=== PATIENT | female | born 1980 | race Caucasian/White ===

== ENCOUNTER 2018-02-07 07:42 | Day surgery (SDC) | payer OTHER ==
[2018-02-06 08:38] VITALS: BMI 38.2
[2018-02-07] MEDS ORDERED: CEFAZOLIN/Water 2 GM/20 ML SYRINGE ONE (08:54)
[2018-02-07] MEDS ORDERED: Lidocaine 1% (PF) 30 ML VIAL ONE (09:21)
[2018-02-07] MEDS ORDERED: Fentanyl 100 MCG/2 ML VIAL ONE ×3 (09:36→11:51)
[2018-02-07] MEDS ORDERED: Promethazine HCl 25 MG/ML VIAL ONE (12:03)
--- NOTE | 2018-02-07 12:57 | OP ---
DATE OF PROCEDURE: 02/07/2018 PREOPERATIVE DIAGNOSES: Right arm cubital tunnel syndrome. POSTOPERATIVE DIAGNOSIS: Right arm cubital tunnel syndrome. PROCEDURE PERFORMED: 1. Right-sided ulnar nerve release. 2. Placement of long arm splint, right upper extremity. SURGEON: Noe Sifuentes M.D. CONTROLLER REPAIRER AND TESTER: None. BLOOD LOSS: Minimal. COMPLICATIONS: None. ANESTHESIA: The patient had a general anesthetic. We did infiltrate the wound with local at the end of the procedure. INDICATIONS: A 37-year-old female who has significant pain, numbness and tingling from ulnar nerve c ompression and this was confirmed with an EMG/NCV. At this time, she opted to have a nerve release. DESCRIPTION OF PROCEDURE: After all appropriate consent forms were explained and signed, she was donna en to the operating room and at this time and was given general anesthetic. Once the general anesthe tic was appropriate, the tourniquet was placed on the right arm and the right upper extremity was pre pped and draped in the standard surgical fashion. The incision line was drawn out. The limb was exs anguinated and the tourniquet was taken up to 250 mmHg. Using loupe magnification, a 10 blade was us ed to incise down through skin only. Bipolar cautery was used to coagulate any brisk venous bleeding . From here on scissor dissection was used to free up the nerve proximally up the brachium and down to the first motor branch distally. Once this was freed up and no more adhesions were noted, the alber[place] [facility] [employer]-Ed[employer] sponge was placed into the wound and the patient's tourniquet was let down. The bipolar w as used to achieve hemostasis and once hemostasis was achieved, we thoroughly irrigated and dried the wound. We then took a Vicryl suture and closed the 2 sides of the fascia, closing the cubital tunne l so the nerve could not fall back into the cubital tunnel. Once this was done, 2-0 Vicryl and then 3-0 Prolene were used to close skin. As we were done, closing the skin we infiltrated the entire wou nd with local medication. At this time, a bulky sterile dressing was applied as well as a long arm p osterior splint. A sling was applied. The patient was taken to the recovery room after she was awak ened. All counts were correct at the end of the case and she did receive preoperative IV antibiotics .
[2018-02-07] MEDS ORDERED: PROPOFOL 200 MG/20 ML VIAL ONE (14:25)
[2018-02-07] MEDS ORDERED: Lidocaine 1% PF 5 ML VIAL ONE (14:25)
[2018-02-07] MEDS ORDERED: Ondansetron HCl/PF 4 MG/2 ML Vial ONE (14:25)
== END 2018-02-07 13:40 | disposition home or self-care (01) ==
LOC: SDC 07:42
PROVIDERS: ATTEND Orthopaedic Surgery
PROC: 01N40ZZ Release Ulnar Nerve, Open Approach (ICD-10-PCS; principal; 2018-02-07)
DX: G56.21 Lesion of ulnar nerve, right upper limb (principal); E03.9 Hypothyroidism, unspecified; Z79.899 Other long term (current) drug therapy; Z88.5 Allergy status to narcotic agent
CPT/HCPCS: 96374; J2001; J2405; J2550; J2704; J3010

== ENCOUNTER 2022-03-31 13:28 | Outpatient (CLI) | payer BC | END 2022-03-31 13:29 | disposition home or self-care (01) | LOC: SCSMRI 13:28 | PROVIDERS: ATTEND Orthopaedic Surgery | DX: M24.9 Joint derangement, unspecified (principal); S53.432A Radial collateral ligament sprain of left elbow, initial encounter; M25.422 Effusion, left elbow; S53.492A Other sprain of left elbow, initial encounter ==

== ENCOUNTER 2022-05-04 06:00 | Day surgery (SDC) | payer BC ==
[2022-05-02 10:07] VITALS: BMI 38.2
[2022-05-04] MEDS ORDERED: fentaNYL Citrate/PF 100 MCG/2 ML SYRINGE ONE ×2 (06:37→08:32)
[2022-05-04] MEDS ORDERED: Bupivacaine HCl 0.5%/Epinephrine 1:200,000/PF 30 ml Vial ONE ×2 (06:44→07:25)
[2022-05-04] MEDS ORDERED: Sodium Chloride 0.9% 100 ML ONE (07:10)
[2022-05-04] MEDS ORDERED: CEFAZOLIN 2 GM VIAL ONE (07:10)
[2022-05-04] MEDS ORDERED: Midazolam HCl 2 mg/2 ml Vial ONE (07:12)
[2022-05-04] MEDS ORDERED: Lidocaine 1% MPF 2 ML VIAL ONE (07:25)
[2022-05-04] MEDS ORDERED: Glycopyrrolate 0.2 MG/ML 5 ML SYRINGE ONE (07:25)
[2022-05-04] MEDS ORDERED: NEOSTIGMINE 3 MG/3 ML SYR 3 MG/3 ML SYRINGE ONE (07:25)
[2022-05-04] MEDS ORDERED: Rocuronium Bromide 10 MG/ML (10ML VIAL) ONE (07:25)
[2022-05-04] MEDS ORDERED: PROPOFOL 200 MG/20 ML VIAL ONE (07:25)
[2022-05-04] MEDS ORDERED: Ondansetron PF 4 MG/2 ML Vial ONE ×2 (07:25→10:10)
[2022-05-04] MEDS ORDERED: Esmolol 100 MG/10 ML VIAL ONE (07:25)
[2022-05-04] MEDS ORDERED: Ketorolac Tromethamine 30 MG/ML VIAL ONE (07:25)
[2022-05-04] MEDS ORDERED: Fentanyl 100 MCG/2 ML VIAL ONE ×2 (10:15→10:41)
[2022-05-04] MEDS ORDERED: Bupivacaine PF 0.5% 30 ML VIAL ONE (10:38)
[2022-05-04] MEDS ORDERED: Scopolamine 1.5 mg/72 hour Patch ONE (10:57)
[2022-05-04] MEDS ORDERED: Promethazine HCl 25 MG/ML VIAL ONE (11:53)
== END 2022-05-04 14:25 | disposition home or self-care (01) ==
LOC: SDC 06:00
PROVIDERS: ATTEND Orthopaedic Surgery
PROC: 01N40ZZ Release Ulnar Nerve, Open Approach (ICD-10-PCS; principal; 2022-05-04)
PROC: 0RBM4ZZ Excision of Left Elbow Joint, Percutaneous Endoscopic Approach (ICD-10-PCS; principal; 2022-05-04)
DX: G56.22 Lesion of ulnar nerve, left upper limb (principal); M24.022 Loose body in left elbow; M19.022 Primary osteoarthritis, left elbow; M24.522 Contracture, left elbow; E66.9 Obesity, unspecified; Z68.38 Body mass index [BMI] 38.0-38.9, adult; Z86.14 Personal history of Methicillin resistant Staphylococcus aureus infection; Z88.5 Allergy status to narcotic agent
CPT/HCPCS: J0690; J1885; J2250; J2405; J2550; J2704; J3010; J3490; S0020